=== PATIENT | male | born 1995 | race Caucasian/White ===

== ENCOUNTER 2017-06-11 12:27 | Emergency (ER) | payer MEDICAID ==
[~2017-06-11] VITALS: Ht 182.9 cm; Wt 71.0 kg
[2017-06-11] MEDS ORDERED: ACETAMINOPHEN 325 MG TABLET PO ONE (13:00)
[2017-06-11] MEDS ORDERED: PERTUSS(ACELL),DIPH,TET VAC/PF 0.5 ML VIAL IM ONE (13:00)
[2017-06-11 13:28] VITALS: BP 136/85
== END 2017-06-11 14:14 | disposition home or self-care (01) ==
LOC: EMS 12:29
DX: S81.012A Laceration without foreign body, left knee, initial encounter (principal); W26.8XXA Contact with other sharp object(s), not elsewhere classified, initial encounter; Y93.89 Activity, other specified; Y92.89 Other specified places as the place of occurrence of the external cause; Y99.0 Civilian activity done for income or pay
CPT/HCPCS: 12001; 90471; 90715; 99283